=== PATIENT | male | born 1965 | race Hispanic/Latino ===

== ENCOUNTER 2017-04-20 16:37 | Emergency (ER) | payer MEDICAID ==
--- NOTE | 2017-04-20 17:02 | Emergency Department Report ---
Chief Complaint: Skin/Abscess/Foreign Body Stated Complaint: POSS SPIDER BITE Time Seen by Provider: 04/20/17 16:58 - HPI History of Present Illness: PT c/o spider bite to L thigh. PT states he was bit 2 days ago. PT states today he got antifreeze in sore today and it started to hurt worse. - ROS Review of Systems: - fever + redness and swelling + drainage - Exam Physical Exam: PT looks well, non toxic PT with multiple tattoos PT with erythematous area to L ant thigh MSE screening note: Focused history and physical exam performed. Due to findings the following was ordered: ED Disposition for MSE Condition: Stable Referrals: PRIMARY CARE, [Primary Care Provider] - 3-5 Days
[2017-04-20 17:05] VITALS: BP 128/89
[2017-04-20] MEDS ORDERED: MOTRIN PO ONE (19:30)
--- NOTE | 2017-04-20 19:37 | Emergency Department Report ---
- General Chief complaint: Animal Bite Stated complaint: POSS SPIDER BITE Time Seen by Provider: 04/20/17 16:58 Source: patient Mode of arrival: Ambulatory Limitations: No Limitations - History of Present Illness Initial comments: This is a 52-year-old male well-nourished with nontoxic or ill in appearance but complaining of a possible spider bite to the left anterior lateral thigh. He stated had noted these symptoms 2 days ago and started to use antifreeze which made the pain worse. Patient states has history of same symptom that her right hand that was admitted in 2016 due to not having insurance and homeless. Patient currently states he has insurance and is able to take medication with no complications. Patient denies any fever, chills, nausea, vomiting, chest pain, shortness of breath, numbness, drainage, joint swelling, joint pain, joint redness, headache, numbness or tingling sensation. Patient denies any drug allergies. Denies past medical history. MD complaint: insect bite/sting -: Gradual, days(s) (2) Tetanus Up to Date: yes (2016 as per patient) Location: LLE Severity: moderate Severity scale (0 -10): 10 Quality: burning, aching Consistency: constant Improves with: none Worsens with: none Associated symptoms: denies other symptoms Treatments Prior to Arrival: none - Related Data Home Medications Medication Instructions Recorded Confirmed Last Taken HYDROcodone/APAP 10-325 [[place] 1 each PO QDAY PRN 04/20/17 04/20/17 04/19/17 22: 00 10/325] Oxycodone HCl [Roxicodone TAB] 30 mg PO TID 04/20/17 04/20/17 04/20/17 05:30 Previous Rx's Medication Instructions Recorded Last Taken Type Cephalexin [Keflex] 500 mg PO Q8HR #21 cap 04/20/17 Unknown Rx Ibuprofen [Motrin 600 MG tab] 600 mg PO Q8H PRN #15 tablet 04/20/17 Unknown Rx Sulfamethoxazole/Trimethoprim 1 each PO BID #14 tablet 04/20/17 Unknown Rx [Bactrim DS TAB] Allergies Allergy/AdvReac Type Severity Reaction Status Date / Time No Known Allergies Allergy Verified 04/20/17 16:57 Abscess Boil HPI - HPI Chief Complaint: Animal Bite Stated Complaint: POSS SPIDER BITE Time Seen by Provider: 04/20/17 16:58 Home Medications: Home Medications Medication Instructions Recorded Confirmed Last Taken HYDROcodone/APAP 10-325 [[place] 1 each PO QDAY PRN 04/20/17 04/20/17 04/19/17 22: 00 10/325] Oxycodone HCl [Roxicodone TAB] 30 mg PO TID 04/20/17 04/20/17 04/20/17 05:30 Previous Rx's Medication Instructions Recorded Last Taken Type Cephalexin [Keflex] 500 mg PO Q8HR #21 cap 04/20/17 Unknown Rx Ibuprofen [Motrin 600 MG tab] 600 mg PO Q8H PRN #15 tablet 04/20/17 Unknown Rx Sulfamethoxazole/Trimethoprim 1 each PO BID #14 tablet 04/20/17 Unknown Rx [Bactrim DS TAB] Allergies/Adverse Reactions: Allergies Allergy/AdvReac Type Severity Reaction Status Date / Time No Known Allergies Allergy Verified 04/20/17 16:57 ED Review of Systems ROS: Stated complaint: POSS SPIDER BITE Other details as noted in HPI Constitutional: denies: chills, fever Eyes: denies: eye pain, eye discharge, vision change ENT: denies: ear pain, throat pain Respiratory: denies: cough, shortness of breath, wheezing Cardiovascular: denies: chest pain, palpitations Endocrine: no symptoms reported Gastrointestinal: denies: abdominal pain, nausea, diarrhea Genitourinary: denies: urgency, dysuria Musculoskeletal: denies: back pain, joint swelling, arthralgia Skin: other. denies: rash, lesions Neurological: denies: headache, weakness, paresthesias Psychiatric: denies: anxiety, depression Hematological/Lymphatic: denies: easy bleeding, easy bruising ED Past Medical Hx - Past Medical History Hx Congestive Heart Failure: No Hx Diabetes: No Hx Asthma: No Hx COPD: No Hx HIV: No Additional medical history: chronic back pain - Surgical History Additional Surgical History: abscess left chest-2008 - Social History Smoking Status: Current Every Day Smoker Substance Use Type: Prescribed - Medications Home Medications: Home Medications Medication Instructions Recorded Confirmed Last Taken Type Cephalexin [Keflex] 500 mg PO Q8HR #21 cap 04/20/17 Unknown Rx HYDROcodone/APAP 10-325 [[place] 1 each PO QDAY PRN 04/20/17 04/20/17 04/19/17 22: 00 History 10/325] Ibuprofen [Motrin 600 MG tab] 600 mg PO Q8H PRN #15 tablet 04/20/17 Unknown Rx Oxycodone HCl [Roxicodone TAB] 30 mg PO TID 04/20/17 04/20/17 04/20/17 05:30 History Sulfamethoxazole/Trimethoprim 1 each PO BID #14 tablet 04/20/17 Unknown Rx [Bactrim DS TAB] ED Physical Exam - General Limitations: No Limitations General appearance: alert, in no apparent distress - Head Head exam: Present: atraumatic, normocephalic - Eye Eye exam: Present: normal appearance, PERRL, EOMI. Absent: scleral icterus, conjunctival injection, nystagmus Pupils: Present: normal accommodation - ENT ENT exam: Present: normal exam, normal orophraynx, mucous membranes moist, TM's normal bilaterally, normal external ear exam - Neck Neck exam: Present: normal inspection, full ROM. Absent: tenderness, meningismus, lymphadenopathy, thyromegaly - Respiratory Respiratory exam: Present: normal lung sounds bilaterally. Absent: respiratory distress, wheezes, rales, rhonchi, stridor, chest wall tenderness, accessory muscle use, decreased breath sounds, prolonged expiratory - Cardiovascular Cardiovascular Exam: Present: regular rate, normal rhythm, normal heart sounds. Absent: bradycardia, tachycardia, irregular rhythm, systolic murmur, diastolic murmur, rubs, gallop - GI/Abdominal GI/Abdominal exam: Present: soft, normal bowel sounds. Absent: distended, tenderness, guarding, rebound, rigid, diminished bowel sounds - Rectal Rectal exam: Present: deferred - Extremities Exam Extremities exam: Present: normal inspection, full ROM, normal capillary refill. Absent: tenderness, pedal edema, joint swelling, calf tenderness - Expanded Lower Extremity Exam Left Hip exam: Present: full ROM, tenderness. Absent: swelling, abrasion, laceration , ecchymosis, deformity Upper Leg exam: Present: normal inspection, full ROM. Absent: tenderness, swelling, abrasion, laceration, ecchymosis, deformity Knee exam: Present: normal inspection, full ROM, full knee extension. Absent: tenderness, swelling, abrasion, laceration, ecchymosis, deformity, crepidus, erythema, effusion, pain w/ pronation/supination, posterior draw sign, pain/ laxity with valgus, pain/laxity with varus Lower Leg exam: Present: normal inspection, full ROM. Absent: tenderness, swelling Ankle exam: Present: normal inspection, full ROM. Absent: tenderness, swelling Neuro vascular tendon exam: Present: no vascular compromise Gait: Positive: observed and normal 1 - 2 cm x 3 cm redness. swelling, and drainage - Back Exam Back exam: Present: normal inspection, full ROM. Absent: tenderness, CVA tenderness (R), CVA tenderness (L), muscle spasm, paraspinal tenderness, vertebral tenderness, rash noted - Neurological Exam Neurological exam: Present: alert, oriented X3, CN II-XII intact, normal gait - Psychiatric Psychiatric exam: Present: normal affect, normal mood - Skin Skin exam: Present: warm, dry, intact, normal color, erythema, other (swelling with drainage. ). Absent: rash - Other Other exam information: No fluctuance present to the left thigh. No joint left knee swelling or redness. ED Course Vital Signs 04/20/17 16:59 Temperature 97.8 F Pulse Rate 73 Respiratory 17 Rate Blood Pressure 128/89 O2 Sat by Pulse 100 Oximetry ED Medical Decision Making - Medical Decision Making Ed course: This is a 52-year-old make that presents with [id number] cellulitis to left anterior lateral thigh 1- after my physical exam, patient received keflex and bactrim at the time of d/ c as well as ibuprofen bc pt had previous symptoms and was admitted for poor selfcare and homeless. 2- I used a permanent marker to outline the cellulitic area and instructed patient to observe sign and symptoms if redness and swelling past the line and to report back to emergency room. 3- Pt was also instructed to f/u with a Primary care doctor within 3-5 days or if symptoms worsen such as increased redness and swelling pass the marked line, fever, chills, CP, SOB, nausea, vomiting, numbness or tingling, joint pain or joint swelling report back to emergency as possible. 4- at time time of discharge, the patient does not seem toxic or ill in appearance. No acute signs of distress noted. Patient agrees to discharge treatment plan of care. No further questions noted by the patient. Critical care attestation.: If time is entered above; I have spent that time in minutes in the direct care of this critically ill patient, excluding procedure time. ED Disposition Clinical Impression: Cellulitis Qualifiers: Site of cellulitis: extremity Site of cellulitis of extremity: lower extremity Laterality: left Qualified Code(s): L03.116 - Cellulitis of left lower limb Disposition: - TO HOME OR SELFCARE Is pt being admited?: No Does the pt Need Aspirin: No Condition: Stable Instructions: Animal Bite (ED), Cellulitis (ED), Sulfamethoxazole/Trimethoprim (By mouth), Cephalexin (By mouth), Ibuprofen (By mouth) Additional Instructions: follow-up with a Primary care doctor within 3-5 days or if symptoms worsen such as increased redness and swelling pass the marked line, fever, chills, CP, SOB, nausea, vomiting, numbness or tingling, joint pain or joint swelling report back to emergency as possible. Take full course of both antibiotics as prescribed. Prescriptions: Cephalexin [Keflex] 500 mg PO Q8HR #21 cap Ibuprofen [Motrin 600 MG tab] 600 mg PO Q8H PRN #15 tablet PRN Reason: Pain Sulfamethoxazole/Trimethoprim [Bactrim DS TAB] 1 each PO BID #14 tablet Referrals: PRIMARY CAREMD [Primary Care Provider] - 3-5 Days [facility] [Outside] - 3-[address] [facility] [Outside] - 3-5 Days MYAH TANNER JR, MD [Staff Physician] - 3-5 Days Forms: Work/School Release Form(ED)
== END 2017-04-20 20:30 | disposition home or self-care (01) ==
LOC: ED 16:37
DX: L03.116 Cellulitis of left lower limb (principal); F17.200 Nicotine dependence, unspecified, uncomplicated; G89.29 Other chronic pain
CPT/HCPCS: 99283